=== PATIENT | female | born 1990 | race Two or more races ===

== ENCOUNTER 2016-12-09 19:50 | Observation (INO) | payer MEDICAID, OTHER ==
[2016-12-09] MEDS ORDERED: PREN-96 PO (21:10)
== END 2016-12-09 21:00 | disposition home or self-care (01) | DRG 566 ==
LOC: LDRP 19:50
PROVIDERS: ADMIT Obstetrics & Gynecology; ATTEND Obstetrics & Gynecology
DX: O26.892 Other specified pregnancy related conditions, second trimester (principal); R10.9 Unspecified abdominal pain; Z3A.23 23 weeks gestation of pregnancy
CPT/HCPCS: 59025; 81002; G0378